=== PATIENT | male | born 1970 | race Caucasian/White ===

== ENCOUNTER 2021-09-02 18:37 | Outpatient (CLI) | payer MEDICARE, MEDICAID, SELFPAY ==
--- NOTE | 2021-09-02 19:00 | XRR_ITS ---
PROCEDURE INFORMATION: Exam: XR Nasal Bones Exam date and time: 09/02/2021 7:00 PM Age: 51 years old Clinical indication: Injury or trauma; Fall; Blunt trauma (contusions or hematomas); Nose; Additional info: Nasal pain and swelling TECHNIQUE: Imaging protocol: XR of the nasal bones. Views: Minimum of 3 views COMPARISON: No relevant prior studies available. FINDINGS: Sinuses: Well aerated. No opacification. Bones/joints: No fracture. Soft tissues: Unremarkable. XR/XR nasal bones min 3V [id number] IMPRESSION: Unremarkable. Radiation Dose CTDIVOL = (mGy): DLP = (mGy-cm)
== END 2021-09-02 18:38 | disposition home or self-care (01) ==
LOC: RAD 18:44
PROVIDERS: Visit Provider Nurse Practitioner Family
DX: J34.89 Other specified disorders of nose and nasal sinuses (principal); M79.89 Other specified soft tissue disorders
CPT/HCPCS: 70160

== ENCOUNTER 2021-09-29 18:17 | Emergency (ER) | payer MEDICARE, MEDICAID, SELFPAY ==
[2021-09-29 18:36] VITALS: BP 157/94; PULSE 96; RESP 18; TEMP 36.7; O2SAT 96; BMI 24.7
--- NOTE | 2021-09-29 18:42 | ECG_ITS ---
[facility] Test Date: 2021-09-29 Pat Name: Soren Martins Department: Room: Gender: Male [employer] Internship: : 1970 Requested By: Matthias Locke Order Number: [id number] Reading MD: ANGY RUIZ Measurements Intervals [place] Rate: 92 P: 95 DE: 186 QRS: 53 QRSD: 92 T: 69 QT: 368 QTc: 456 Interpretive Statements SINUS RHYTHM WITH OCCASIONAL VENTRICULAR PREMATURE COMPLEXES INTERPRETATION BASED ON A DEFAULT AGE OF 40 YEARS Compared to ECG 08/19/2019 22:38:04 Ventricular premature complex(es) now present Electronically Signed On 10-01-2021 0:01:40 CDT by ANGY RUIZ [email or web address]/store/NU/[id number] f
--- NOTE | 2021-09-29 18:42 | XRR_ITS ---
PROCEDURE INFORMATION: Exam: XR Chest Exam date and time: 09/29/2021 6:42 PM Age: 51 years old Clinical indication: Sternal or substernal pain; Additional info: Cp TECHNIQUE: Imaging protocol: XR of the chest. Views: 1 view. COMPARISON: CR Chest 1 [place] [id number] 08/19/2019 10:47 PM FINDINGS: Lungs: Mild atelectasis in the lung bases. The lungs are otherwise clear. Pleural spaces: Unremarkable. No pleural effusion. No pneumothorax. Heart/Mediastinum: Unremarkable. No cardiomegaly. Bones/joints: Unremarkable. Gastrointestinal tract: Prominent gas-filled loops of small and large bowel could represent ileus. XR/XR chest 1V portable [id number] IMPRESSION: 1. No acute findings. Radiation Dose CTDIVOL = (mGy): DLP = (mGy-cm)
--- NOTE | 2021-09-29 20:58 | ED_ITS ---
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 Denies any difficulty getting a breath in. Associated symptoms: Deny abdominal pain, dyspnea, fever(s), nausea or vomiting Review of Systems Const: Denies: fever(s), chills, body aches or change in appetite Eyes: Denies: blurry vision or eye discomfort ENMT: Denies: throat pain or dental pain Card: Reports: chest pain Resp: Denies: dyspnea GI: Denies: abdominal pain, nausea, vomiting or diarrhea : Denies: dysuria Musc: Denies: neck pain or back pain Skin/Breast: Denies: rash Neuro: Denies: headache(s) Psych: Denies: depression Doni/Lymph: Denies: easy bruising All/Imm: Denies: urticaria Physical Exam Const: COMMON NORMALS: no acute distress, patient oriented x3 and healthy appearing HENMT: COMMON NORMALS: normocephalic and atraumatic HEAD & SCALP: normocephalic and atraumatic Eye: COMMON NORMALS: Equal, round and reactive pupils present and EOMs intact bilaterally PUPIL: Yes Equal, round and reactive pupils present Neck/C-Spine: COMMON NORMALS: full ROM and supple Chest: COMMONS NORMALS: normal inspection of the chest OTHER: point tender over left chest Resp: COMMON NORMALS: normal respiratory effort, No retractions, No use of accessory muscles and clear to auscultation bilaterally AUSCULTATION: clear to auscultation bilaterally Cardio: COMMON NORMALS: regular rate, regular rhythm and No murmurs present (Cardio) RATE: regular rate RHYTHM: regular rhythm GI: COMMON NORMALS: Normal to inspection, nondistended, normoactive bowel sounds present, Soft to palpation, non-tender and no masses PALPATION: Yes Soft to palpation Extremity: COMMON NORMALS: normal to inspection and full ROM Neuro: COMMON NORMALS: patient oriented x3, moves all extremities and no focal motor deficits Psych: COMMON NORMALS: mental status grossly normal, Normal thought process present and cooperative THOUGHT PROCESS: Normal thought process present Skin: COMMON NORMALS: no rashes or lesions noted and no wounds GENERAL SKIN EXAM: no rashes or lesions noted Course Vital Signs: Vital signs: Vital Signs Temperature 98.0 F 09/29/21 18:36 Pulse Rate 85 09/29/21 21:20 Respiratory Rate 16 09/29/21 21:20 Blood Pressure 129/79 09/29/21 21:20 Pulse Oximetry 93 09/29/21 21:20 MDM - Chest Pain MDM Narrative: Medical decision making narrative: Patient presents for chest pains very atypical he is point tender left side of his chest likely chest wall pain initial repeat troponins are negative blood work x-ray and EKG are all normal as well he is stable for discharge he is to follow-up with PCP and is to return if worsening he understands agrees to plan. Lab Data: Labs: Lab Results 09/29/21 09/29/21 09/29/21 21:32 21:32 21:32 WBC 11.5 10^3/uL H 10 ^3/uL (4.0-10.0) RBC 4.65 10^6/uL 10^6 /uL (4.1-5.3) Hgb 13.8 g/dL g/dL (11.7-16.6) Hct 39.2 % L % (42.0-52.0) MCV 84.3 fl fl (80-94) MCH 29.7 pg pg (28.0-34.0) MCHC 35.2 g/dL g/dL (30.0-36.0) RDW 12.7 % % (12.1-15.1) Plt Count 214 10^3/cmm 10^3 /cmm (130-400) MPV 9.0 fL fL (7.4-10.4) Neut % (Auto) 72.4 % % Lymph % (Auto) 10.7 % % [place] % (Auto) 14.7 % % Eos % (Auto) 1.6 % % Baso % (Auto) 0.3 % % Neut # (Auto) 8.35 10^3/uL H 10 ^3/uL (1.8-7.7) Lymph # (Auto) 1.2 10^3/uL 10^3/ uL (0.8-4.8) [place] # (Auto) 1.7 10^3/uL H 10^ 3/uL (0.2-0.9) Eos # (Auto) 0.2 10^3/uL 10^3/ uL (0.0-0.8) Baso # (Auto) 0.0 10^3/uL 10^3/ uL (0.0-0.1) Nucleated RBC % (a uto) 0 % % Nucleated RBCs # 0.0 /100WBC /100W BC Sodium 134 mmol/L L mmol /L (136-145) Potassium 3.7 mmol/L mmol/L (3.5-5.1) Chloride 98 mmol/L mmol/L (98-107) Carbon Dioxide 25 mmol/L mmol/L (22-29) Anion Gap 14.7 (5-19) BUN 11 mg/dL mg/dL (6-20) Creatinine 0.5 mg/dL L mg/dL (0.7-1.2) GFR Calculation 174.6 mL/min H mL /min (90-130) Glucose 113 mg/dL mg/dL (65-115) Calculated Osmolal ity 278 mOsm/kg L mOs m/kg (285-295) Calcium 9.3 mg/dL mg/dL (8.5-10.5) Total Bilirubin 0.6 mg/dL mg/dL (0.15-1.2) AST 15 U/L U/L (0-40) ALT 16 U/L U/L (0-41) Alkaline Phosphata se 62 IU/L IU/L (40-130) Troponin T Baselin e 6 ng/L ng/L (0-15) Troponin T 120 Min [place] Troponin T Total Protein 6.9 g/dL g/dL (6.6-8.7) Albumin 4.1 g/dL g/dL (3.5-5.2) Globulin 2.8 g/dL g/dL (1.3-4.6) 09/29/21 23:30 WBC RBC Hgb Hct MCV MCH MCHC RDW Plt Count MPV Neut % (Auto) Lymph % (Auto) [place] % (Auto) Eos % (Auto) Baso % (Auto) Neut # (Auto) Lymph # (Auto) [place] # (Auto) Eos # (Auto) Baso # (Auto) Nucleated RBC % (a uto) Nucleated RBCs # Sodium Potassium Chloride Carbon Dioxide Anion Gap BUN Creatinine GFR Calculation Glucose Calculated Osmolal ity Calcium Total Bilirubin AST ALT Alkaline Phosphata se Troponin T Baselin e Troponin T 120 Min [place] 6.00 ng/L ng/L (0-15) Delta Troponin T 0 ABS# ABS# (0-10) Total Protein Albumin Globulin Imaging Data^: CXR: Attestation: I personally reviewed and interpreted this imaging study as follows: Radiologist's impression: [id number] [address] XRay Report Signed Patient: Soren Martins Unit #: [id number] : 1970 Age/Sex: 51 / M ADM Date: 09/29/21 Loc: ER Room/Bed: Attending Dr: Ordering Provider/Ordering MD: Matthias Locke MD Date of Service: 09/29/21 Procedure(s): XR chest 1V portable [id number] Accession Number(s): [id number] Report Number: [id number] PROCEDURE INFORMATION: Exam: XR Chest Exam date and time: 09/29/2021 6:42 PM Age: 51 years old Clinical indication: Sternal or substernal pain; Additional info: Cp TECHNIQUE: Imaging protocol: XR of the chest. Views: 1 view. COMPARISON: CR Chest 1 [place] [id number] 08/19/2019 10:47 PM FINDINGS: Lungs: Mild atelectasis in the lung bases. The lungs are otherwise clear. Pleural spaces: Unremarkable. No pleural effusion. No pneumothorax. Heart/Mediastinum: Unremarkable. No cardiomegaly. Bones/joints: Unremarkable. Gastrointestinal tract: Prominent gas-filled loops of small and large bowel could represent ileus. XR/XR chest 1V portable [id number] IMPRESSION: 1. No acute findings. Radiation Dose CTDIVOL = (mGy): DLP = (mGy-cm) Dictated By: Lev Luciano Signed By: Lev Luciano Signed Date/Time: 09/29/212003 DD/ 41 EKG Data^: EKG 1: Attestation: I personally reviewed and interpreted this EKG as follows: EKG interpretation date: 09/29/21 EKG interpretation time: 18:42 Interpretation: nsr hr [address] or t wave abnormalities qrs 92 qtc 418 Discharge Plan Discharge Patient Disposition: Home Clinical Impression: Chest pain Qualifiers: Chest pain type: unspecified Qualified Code(s): R07.9 - Chest pain, unspecified Condition: Stable Discharge Orders: Discharge ED (Routine); Ordered 09/30/21 Ordered By: Matthias Locke Discharge Diet: Advance as tolerated Discharge Activity: Resume usual activity Patient Instructions: Chest Pain (ED) Coding Level of Care Code ED Generation Engineering Technologist for Chg Fwd Exam Comprehensive
[2021-09-29 21:20] VITALS: BP 129/79; PULSE 85; RESP 16; O2SAT 93
--- NOTE | 2021-09-29 21:38 | PC.NURSE ---
patient family and charge nurse verify that initial EKG was done in triage
[2021-09-29 21:40] LABS: Basophils % 0.3 %; Eosinophils # 0.2 10^3/uL (0.0-0.8); Eosinophils % 1.6 %; Hematocrit 39.2 % (42.0-52.0); Hemoglobin 13.8 g/dL (11.7-16.6); Lymphocytes # 1.2 10^3/uL (0.8-4.8); Lymphocytes % 10.7 %; Mean Corpuscular HGB Conc 35.2 g/dL (30.0-36.0); Mean Corpuscular Hemoglobin 29.7 pg (28.0-34.0); Mean Corpuscular Volume 84.3 fl (80-94); Monocytes # 1.7 10^3/uL (0.2-0.9); Monocytes % 14.7 %; Neutrophils # 8.35 10^3/uL (1.8-7.7); Neutrophils % 72.4 %; Nucleated Red Blood Cells % 0 %; Platelet Count 214 10^3/cmm (130-400); Red Blood Count 4.65 10^6/uL (4.1-5.3); Red Cell Distribution Width 12.7 % (12.1-15.1); White Blood Count 11.5 10^3/uL (4.0-10.0)
[2021-09-29 21:58] LABS: Troponin(5th) Baseline 6 ng/L (0-15)
[2021-09-29 22:00] LABS: Alanine Aminotransferase 16 U/L (0-41); Albumin Level 4.1 g/dL (3.5-5.2); Alkaline Phosphatase 62 IU/L (40-130); Anion Gap 14.7 (5-19); Aspartate Amino Transferase 15 U/L (0-40); Blood Urea Nitrogen 11 mg/dL (6-20); Calcium 9.3 mg/dL (8.5-10.5); Carbon Dioxide 25 mmol/L (22-29); Chloride 98 mmol/L (98-107); Globulin 2.8 g/dL (1.3-4.6); Glomerular Filtration Rate 174.6 mL/min (90-130); Glucose 113 mg/dL (65-115); Osmolality Calculated 278 mOsm/kg (285-295); Potassium 3.7 mmol/L (3.5-5.1); Sodium 134 mmol/L (136-145); Total Bilirubin 0.6 mg/dL (0.15-1.2); Total Protein 6.9 g/dL (6.6-8.7)
[2021-09-29] MEDS: morphine 4 mg/mL SDV 1 mL IVP (22:02)
[2021-09-29] MEDS: ondansetron 2 mg/ML SDV 2 mL 4 MG IVP (22:02)
[2021-09-29 23:58] LABS: Troponin 5 2HR Delta 0 ABS# (0-10)
[2021-09-30 00:21] VITALS: BP 129/79; PULSE 85; RESP 16; TEMP 36.7; O2SAT 93
== END 2021-09-30 00:23 | disposition home or self-care (01) ==
PROVIDERS: Emergency Provider Emergency Medicine
DX: R07.9 Chest pain, unspecified (principal)
CPT/HCPCS: 36415; 71045; 80053; 84484; 85025; 93005; 96374; 96375; 99284; J2270; J2405

== ENCOUNTER 2021-12-13 13:43 | Outpatient (CLI) | payer MEDICARE, MEDICAID, SELFPAY ==
[2021-12-13 07:00] VITALS: BMI 22.3
[2021-12-13 14:10] VITALS: BP 121/88; PULSE 75; RESP 18; TEMP 36.3; O2SAT 94
[2021-12-13 14:55] VITALS: BP 119/86; PULSE 73; RESP 18; TEMP 36.6; O2SAT 96
[2021-12-13 15:55] VITALS: BP 128/82; PULSE 72; RESP 17; TEMP 36.6; O2SAT 97
== END 2021-12-13 13:44 | disposition home or self-care (01) ==
LOC: OPS 13:49
PROVIDERS: Visit Provider Nurse Practitioner Family
DX: U07.1 COVID-19 (principal)
CPT/HCPCS: 96365

== ENCOUNTER → 2022-07-04 08:22 | Outpatient (BNVA) | payer MEDICARE, MEDICAID, SELFPAY | PROVIDERS: PCP Nurse Practitioner Family; Referring Provider Nurse Practitioner Family; Visit Provider Internal Medicine Rheumatology | DX: M06.041 Rheumatoid arthritis without rheumatoid factor, right hand (principal); M06.042 Rheumatoid arthritis without rheumatoid factor, left hand; Z79.899 Other long term (current) drug therapy; Z11.59 Encounter for screening for other viral diseases; R47.01 Aphasia; Z71.85 Encounter for immunization safety counseling; Z11.1 Encounter for screening for respiratory tuberculosis; Z79.1 Long term (current) use of non-steroidal anti-inflammatories (NSAID) | CPT/HCPCS: 36415; 85651; 86140; 86480; 86704; 86803; 87340; 99204 ==

== ENCOUNTER 2022-08-08 10:20 | Outpatient (CLI) | payer MEDICARE, MEDICAID, SELFPAY ==
[2022-08-08 10:51] LABS: Basophils # 0.1 10^3/uL (0.0-0.1); Eosinophils # 0.3 10^3/uL (0.0-0.8); Eosinophils % 3.4 %; Hematocrit 44.5 % (42.0-52.0); Lymphocytes # 1.8 10^3/uL (0.8-4.8); Lymphocytes % 23.4 %; Mean Corpuscular HGB Conc 31.5 g/dL (30.0-36.0); Mean Corpuscular Hemoglobin 28.7 pg (28.0-34.0); Mean Corpuscular Volume 91.4 fl (80-94); Mean Platelet Volume 9.2 fL (7.4-10.4); Monocytes # 1.2 10^3/uL (0.2-0.9); Monocytes % 16.1 %; Neutrophils # 4.26 10^3/uL (1.8-7.7); Nucleated Red Blood Cells % 0 %; Platelet Count 237 10^3/cmm (130-400); Red Blood Count 4.87 10^6/uL (4.1-5.3); Red Cell Distribution Width 12.7 % (12.1-15.1); White Blood Count 7.6 10^3/uL (4.0-10.0)
[2022-08-08 11:23] LABS: Valproic Acid Level 31.6 ug/mL (50-100)
[2022-08-08 11:26] LABS: Alanine Aminotransferase 26 U/L (0-41); Albumin Level 4.2 g/dL (3.5-5.2); Alkaline Phosphatase 67 U/L (40-130); Anion Gap 14.8 (5-19); Aspartate Amino Transferase 21 U/L (0-40); Blood Urea Nitrogen 10 mg/dL (6-20); Calcium 9.5 mg/dL (8.5-10.5); Carbon Dioxide 26 mmol/L (22-29); Chloride 99 mmol/L (98-107); Globulin 3.4 g/dL (1.3-4.6); Glucose 93 mg/dL (65-115); Osmolality Calculated 281 mOsm/kg (285-295); Potassium 3.8 mmol/L (3.5-5.1); Sodium 136 mmol/L (136-145); Total Bilirubin 0.2 mg/dL (0.15-1.2); Total Protein 7.6 g/dL (6.6-8.7)
[2022-08-08 11:30] LABS: Alanine Aminotransferase 26 U/L (0-41); Albumin Level 4.3 g/dL (3.5-5.2); Alkaline Phosphatase 70 U/L (40-130); Aspartate Amino Transferase 21 U/L (0-40); Glomerular Filtration Rate 140.9 mL/min (90-130); Total Bilirubin 0.2 mg/dL (0.15-1.2); Total Protein 7.3 g/dL (6.6-8.7)
== END 2022-08-08 10:21 | disposition home or self-care (01) ==
LOC: LAB 10:24
PROVIDERS: PCP Nurse Practitioner Family; Visit Provider Internal Medicine Rheumatology
DX: M19.90 Unspecified osteoarthritis, unspecified site (principal); Z79.899 Other long term (current) drug therapy
CPT/HCPCS: 36415; 80053; 80076; 80164; 82565; 85025; 86140

== ENCOUNTER → 2022-10-24 11:25 | Outpatient (BNVA) | payer MEDICARE, MEDICAID, SELFPAY | PROVIDERS: PCP Nurse Practitioner Family; Visit Provider Internal Medicine Rheumatology | DX: M06.041 Rheumatoid arthritis without rheumatoid factor, right hand (principal); M06.042 Rheumatoid arthritis without rheumatoid factor, left hand; Z79.899 Other long term (current) drug therapy; Z71.85 Encounter for immunization safety counseling; R47.01 Aphasia; M15.9 Polyosteoarthritis, unspecified; Z79.52 Long term (current) use of systemic steroids | CPT/HCPCS: 99214 ==

== ENCOUNTER → 2023-01-18 11:03 | Outpatient (BNVA) | payer MEDICARE, MEDICAID, SELFPAY | PROVIDERS: PCP Nurse Practitioner Family; Visit Provider Internal Medicine Rheumatology | DX: M06.041 Rheumatoid arthritis without rheumatoid factor, right hand (principal); M06.042 Rheumatoid arthritis without rheumatoid factor, left hand; Z79.899 Other long term (current) drug therapy; Z71.85 Encounter for immunization safety counseling; R47.01 Aphasia | CPT/HCPCS: 80076; 82565; 85025; 86140; 99214 ==

== ENCOUNTER 2023-04-17 10:51 | Outpatient (CLI) | payer MEDICARE, MEDICAID, SELFPAY ==
[2023-04-17 12:07] LABS: Basophils # 0.1 10^3/uL (0.0-0.1); Basophils % 0.9 %; Eosinophils # 0.2 10^3/uL (0.0-0.8); Eosinophils % 3.3 %; Hematocrit 41.7 % (42.0-52.0); Hemoglobin 13.2 g/dL (11.7-16.6); Lymphocytes # 1.9 10^3/uL (0.8-4.8); Lymphocytes % 30.2 %; Mean Corpuscular HGB Conc 31.7 g/dL (30.0-36.0); Mean Corpuscular Hemoglobin 27.4 pg (28.0-34.0); Mean Corpuscular Volume 86.5 fl (80-94); Mean Platelet Volume 9.7 fL (7.4-10.4); Monocytes % 15.7 %; Neutrophils % 49.7 %; Nucleated Red Blood Cells % 0 %; Platelet Count 233 10^3/cmm (130-400); Red Blood Count 4.82 10^6/uL (4.1-5.3); Red Cell Distribution Width 14.4 % (12.1-15.1); White Blood Count 6.4 10^3/uL (4.0-10.0)
[2023-04-17 12:36] LABS: Alanine Aminotransferase 20 U/L (0-41); Alkaline Phosphatase 66 U/L (40-130); Aspartate Amino Transferase 24 U/L (0-40); Globulin 3.2 g/dL (1.3-4.6); Glomerular Filtration Rate 140.4 mL/min (90-130); Total Bilirubin 0.3 mg/dL (0.15-1.2); Total Protein 7.2 g/dL (6.6-8.7)
== END 2023-04-17 10:52 | disposition home or self-care (01) ==
LOC: LAB 10:57
PROVIDERS: PCP Nurse Practitioner Family; Visit Provider Internal Medicine Rheumatology
DX: M06.041 Rheumatoid arthritis without rheumatoid factor, right hand (principal); M06.042 Rheumatoid arthritis without rheumatoid factor, left hand; Z79.899 Other long term (current) drug therapy
CPT/HCPCS: 36415; 80076; 82565; 85025; 86140

== ENCOUNTER → 2023-04-19 11:11 | Outpatient (BNVA) | payer MEDICARE, MEDICAID, SELFPAY | PROVIDERS: PCP Nurse Practitioner Family; Visit Provider Internal Medicine Rheumatology | DX: Z71.85 Encounter for immunization safety counseling (principal); Z79.899 Other long term (current) drug therapy; M06.041 Rheumatoid arthritis without rheumatoid factor, right hand; M06.042 Rheumatoid arthritis without rheumatoid factor, left hand; R47.01 Aphasia | CPT/HCPCS: 99214 ==

== ENCOUNTER 2023-07-20 09:59 | Outpatient (CLI) | payer MEDICARE, MEDICAID, SELFPAY ==
[2023-07-20 11:08] LABS: Basophils # 0.1 10^3/uL (0.0-0.1); Eosinophils # 0.3 10^3/uL (0.0-0.8); Eosinophils % 5.1 %; Hematocrit 40.7 % (37-53); Lymphocytes # 1.5 10^3/uL (0.8-4.8); Lymphocytes % 23.1 %; Mean Corpuscular HGB Conc 32.4 g/dL (30-55); Mean Corpuscular Hemoglobin 27.7 pg (27-33); Mean Corpuscular Volume 85.5 fl (82-101); Mean Platelet Volume 9.5 fL (7.4-10.4); Monocytes # 1.1 10^3/uL (0.2-0.9); Monocytes % 17.8 %; Neutrophils # 3.32 10^3/uL (1.8-7.7); Neutrophils % 52.8 %; Nucleated Red Blood Cells % 0 %; Platelet Count 216 10^3/cmm (157-399); Red Blood Count 4.76 10^6/uL (3.85-5.65); Red Cell Distribution Width 13.9 % (12.1-15.1); White Blood Count 6.28 10^3/uL (3.29-11.43)
[2023-07-20 11:26] LABS: Alanine Aminotransferase 18 U/L (0-41); Albumin Level 3.8 g/dL (3.5-5.2); Alkaline Phosphatase 67 U/L (40-130); Aspartate Amino Transferase 18 U/L (0-40); Globulin 3.1 g/dL (1.3-4.6); Glomerular Filtration Rate 173.3 mL/min (90-130); Total Bilirubin 0.3 mg/dL (0.15-1.2); Total Protein 6.9 g/dL (6.6-8.7)
== END 2023-07-20 10:00 | disposition home or self-care (01) ==
PROVIDERS: PCP Nurse Practitioner Family; Visit Provider Internal Medicine Rheumatology
DX: M06.041 Rheumatoid arthritis without rheumatoid factor, right hand (principal); M06.042 Rheumatoid arthritis without rheumatoid factor, left hand; Z71.85 Encounter for immunization safety counseling; Z79.899 Other long term (current) drug therapy
CPT/HCPCS: 36415; 80076; 82565; 85025; 86140

== ENCOUNTER → 2023-10-03 14:14 | Outpatient (BNVA) | payer MEDICARE, MEDICAID, SELFPAY | PROVIDERS: PCP Nurse Practitioner Family; Visit Provider Internal Medicine Rheumatology | DX: Z79.899 Other long term (current) drug therapy (principal); M06.041 Rheumatoid arthritis without rheumatoid factor, right hand; M06.042 Rheumatoid arthritis without rheumatoid factor, left hand; Z71.85 Encounter for immunization safety counseling; R47.01 Aphasia | CPT/HCPCS: 36415; 80076; 82565; 85025; 86140; 99214 ==

== ENCOUNTER → 2024-01-03 09:50 | Outpatient (BNVA) | payer MEDICARE, MEDICAID, SELFPAY | PROVIDERS: PCP Internal Medicine Rheumatology; Visit Provider Internal Medicine Rheumatology | DX: M06.041 Rheumatoid arthritis without rheumatoid factor, right hand (principal); M06.042 Rheumatoid arthritis without rheumatoid factor, left hand; Z79.899 Other long term (current) drug therapy | CPT/HCPCS: 80076; 82565; 85025; 86140 ==

== ENCOUNTER → 2024-03-26 13:08 | Outpatient (BNVA) | payer MEDICARE, MEDICAID, SELFPAY | PROVIDERS: PCP Internal Medicine Rheumatology; Visit Provider Internal Medicine Rheumatology | DX: Z79.899 Other long term (current) drug therapy (principal); M06.041 Rheumatoid arthritis without rheumatoid factor, right hand; M06.042 Rheumatoid arthritis without rheumatoid factor, left hand; Z71.85 Encounter for immunization safety counseling; R47.01 Aphasia | CPT/HCPCS: 99214 ==

== ENCOUNTER → 2024-04-03 09:04 | Outpatient (BNVA) | payer MEDICARE, MEDICAID, SELFPAY | PROVIDERS: PCP Internal Medicine Rheumatology; Visit Provider Internal Medicine Rheumatology | DX: M06.041 Rheumatoid arthritis without rheumatoid factor, right hand (principal); M06.042 Rheumatoid arthritis without rheumatoid factor, left hand; Z79.899 Other long term (current) drug therapy | CPT/HCPCS: 80076; 82565; 85025; 86140 ==

== ENCOUNTER → 2024-06-11 14:00 | Outpatient (BNVA) | payer MEDICARE, MEDICAID, SELFPAY | PROVIDERS: PCP Internal Medicine Rheumatology; Visit Provider Podiatrist Foot & Ankle Surgery | DX: L60.3 Nail dystrophy (principal); M21.611 Bunion of right foot; M21.612 Bunion of left foot; M20.41 Other hammer toe(s) (acquired), right foot; M20.42 Other hammer toe(s) (acquired), left foot | CPT/HCPCS: 99203 ==

== ENCOUNTER → 2024-06-26 13:34 | Outpatient (BNVA) | payer MEDICARE, MEDICAID, SELFPAY | PROVIDERS: PCP Internal Medicine Rheumatology; Visit Provider Internal Medicine Rheumatology | DX: M06.041 Rheumatoid arthritis without rheumatoid factor, right hand (principal); M06.042 Rheumatoid arthritis without rheumatoid factor, left hand; Z79.899 Other long term (current) drug therapy; Z71.85 Encounter for immunization safety counseling | CPT/HCPCS: 80076; 82565; 85025; 86140 ==

== ENCOUNTER → 2024-09-10 11:22 | Outpatient (BNVA) | payer MEDICARE, MEDICAID, SELFPAY | PROVIDERS: PCP Internal Medicine Rheumatology; Visit Provider Podiatrist Foot & Ankle Surgery | DX: L60.3 Nail dystrophy (principal); M79.671 Pain in right foot; M21.611 Bunion of right foot; M21.612 Bunion of left foot; M20.41 Other hammer toe(s) (acquired), right foot; M20.42 Other hammer toe(s) (acquired), left foot | CPT/HCPCS: 99213 ==

== ENCOUNTER → 2024-10-01 13:45 | Outpatient (BNVA) | payer MEDICARE, MEDICAID, SELFPAY | PROVIDERS: PCP Internal Medicine Rheumatology; Visit Provider Internal Medicine Rheumatology | DX: Z79.899 Other long term (current) drug therapy (principal); M06.041 Rheumatoid arthritis without rheumatoid factor, right hand; M06.042 Rheumatoid arthritis without rheumatoid factor, left hand; Z71.85 Encounter for immunization safety counseling; R47.01 Aphasia | CPT/HCPCS: 36415; 80076; 82565; 85025; 85651; 86140; 99214 ==

== ENCOUNTER → 2024-12-10 11:30 | Outpatient (BNVA) | payer MEDICAID, OTHER, MEDICARE, SELFPAY | PROVIDERS: PCP Internal Medicine Rheumatology; Visit Provider Podiatrist Foot & Ankle Surgery | DX: L60.3 Nail dystrophy (principal); M79.671 Pain in right foot; M21.611 Bunion of right foot; M21.612 Bunion of left foot; M20.41 Other hammer toe(s) (acquired), right foot; M20.42 Other hammer toe(s) (acquired), left foot | CPT/HCPCS: 99213 ==

== ENCOUNTER → 2025-02-19 08:53 | Outpatient (BNVA) | payer OTHER, MEDICARE, MEDICAID, SELFPAY | PROVIDERS: PCP Internal Medicine Rheumatology; Visit Provider Internal Medicine Rheumatology | DX: Z79.899 Other long term (current) drug therapy (principal); M06.041 Rheumatoid arthritis without rheumatoid factor, right hand; M06.042 Rheumatoid arthritis without rheumatoid factor, left hand | CPT/HCPCS: 80076; 82565; 85025; 85651; 86140 ==

== ENCOUNTER → 2025-03-31 08:59 | Outpatient (BNVA) | payer MEDICARE, MEDICAID, SELFPAY | PROVIDERS: PCP Internal Medicine Rheumatology; Visit Provider Internal Medicine Rheumatology | DX: Z79.899 Other long term (current) drug therapy (principal); M06.041 Rheumatoid arthritis without rheumatoid factor, right hand; M06.042 Rheumatoid arthritis without rheumatoid factor, left hand | CPT/HCPCS: 80076; 82565; 85025; 85651; 86140 ==

== ENCOUNTER → 2025-06-09 12:00 | Outpatient (BNVA) | payer OTHER, MEDICAID, SELFPAY | PROVIDERS: PCP Nurse Practitioner Family; Visit Provider Podiatrist Foot & Ankle Surgery | DX: E11.8 Type 2 diabetes mellitus with unspecified complications (principal); L60.3 Nail dystrophy; I73.9 Peripheral vascular disease, unspecified; L60.8 Other nail disorders | CPT/HCPCS: 11721 ==

== ENCOUNTER → 2025-07-02 08:20 | Outpatient (BNVA) | payer OTHER, MEDICAID, SELFPAY | PROVIDERS: PCP Nurse Practitioner Family; Visit Provider Internal Medicine Rheumatology | DX: Z79.899 Other long term (current) drug therapy (principal); M06.041 Rheumatoid arthritis without rheumatoid factor, right hand; M06.042 Rheumatoid arthritis without rheumatoid factor, left hand | CPT/HCPCS: 80076; 82565; 85025; 85651; 86140 ==

== ENCOUNTER → 2025-08-25 09:07 | Outpatient (BNVA) | payer MEDICARE, MEDICAID, SELFPAY | PROVIDERS: PCP Internal Medicine Rheumatology; Visit Provider Internal Medicine Rheumatology | DX: M06.041 Rheumatoid arthritis without rheumatoid factor, right hand (principal); M06.042 Rheumatoid arthritis without rheumatoid factor, left hand; Z79.899 Other long term (current) drug therapy; Z71.85 Encounter for immunization safety counseling; R47.01 Aphasia; Z79.1 Long term (current) use of non-steroidal anti-inflammatories (NSAID) | CPT/HCPCS: 99214 ==

== ENCOUNTER → 2025-09-14 13:10 | Outpatient (BNVA) | payer MEDICARE, MEDICAID, SELFPAY | PROVIDERS: PCP Internal Medicine Rheumatology; Visit Provider Podiatrist Foot & Ankle Surgery | DX: I73.9 Peripheral vascular disease, unspecified (principal); L60.3 Nail dystrophy; M79.671 Pain in right foot; L60.8 Other nail disorders | CPT/HCPCS: 11721 ==

== ENCOUNTER 2025-11-02 10:59 | Outpatient (CLI) | payer MEDICARE, MEDICAID, SELFPAY ==
[2025-11-02 11:41] LABS: Hematocrit 39.7 % (37-53); Hemoglobin 13.00 g/dL (11.27-16.99); Mean Corpuscular HGB Conc 32.7 g/dL (30-55); Mean Corpuscular Hemoglobin 28.3 pg (27-33); Mean Corpuscular Volume 86.5 fl (82-101); Nucleated Red Blood Cells % 0 %; Platelet Count 187 10^3/cmm (157-399); Red Blood Count 4.59 10^6/uL (3.85-5.65); White Blood Count 6.69 10^3/uL (3.29-11.43)
[2025-11-02 12:08] LABS: Alanine Aminotransferase 17 U/L (0-41); Albumin Level 4.0 g/dL (3.5-5.2); Alkaline Phosphatase 57 U/L (40-130); Aspartate Amino Transferase 19 U/L (0-40); Globulin 3.0 g/dL (1.3-4.6); Total Protein 7.0 g/dL (6.6-8.7)
== END 2025-11-02 11:00 | disposition home or self-care (01) ==
PROVIDERS: PCP Internal Medicine Rheumatology; Visit Provider Internal Medicine Rheumatology
DX: Z79.899 Other long term (current) drug therapy (principal)
CPT/HCPCS: 36415; 80076; 82306; 82565; 85025; 85651; 86140; 86480